=== PATIENT | male | born 1990 | race Caucasian/White ===

== ENCOUNTER 2024-08-03 20:03 | Emergency (ER) | payer OTHER ==
[~2024-08-03] VITALS: Ht 188 cm; Wt 84.4 kg
[2024-08-03 20:14] VITALS: TEMP 98.4
[2024-08-03 21:51] VITALS: BP 110/84; O2SAT 99
== END 2024-08-03 21:51 | disposition home or self-care (01) ==
LOC: ER 20:19
DX: S01.81XA Laceration without foreign body of other part of head, initial encounter (principal); W22.09XA Striking against other stationary object, initial encounter; Y93.89 Activity, other specified; Y92.89 Other specified places as the place of occurrence of the external cause; Y99.8 Other external cause status
CPT/HCPCS: 70150-TC